=== PATIENT | male | born 1960 | race African-American/Black ===

== ENCOUNTER 2020-06-13 01:24 | Emergency (ER) | payer SELFPAY ==
--- NOTE | 2020-06-13 01:35 | NUR ---
THIS NURSE WENT TO TRIAGE PT IN AMBULANCE, TRIAGE NOT ACCOMPLISHED. PT STATES "I FEEL BETTER AND DONT WANT TO BE SEE." EXPLAINED TO PT RISK AND BENEFIT. PATIENT LEFT WITHOUT BEING SEEN BY DR. GRAY. NO FURTHER CARE PROVIDED FOR PATIENT.
== END 2020-06-13 01:35 | disposition left against medical advice (07) ==
LOC: MED 01:24
DX: Z53.21 Procedure and treatment not carried out due to patient leaving prior to being seen by health care provider (principal)